=== PATIENT | male | born 1985 | race African-American/Black ===

== ENCOUNTER 2024-12-05 10:00 | Emergency (ER) | payer MEDICAID, OTHER ==
[~2024-12-05] VITALS: Ht 185.4 cm; Wt 113.0 kg
[2024-12-05 10:04] VITALS: O2SAT 99
[2024-12-05 10:15] VITALS: TEMP 36.5; O2SAT 98
[2024-12-05 10:46] VITALS: BP 136/89; PULSE 84; RESP 14
[2024-12-05] MEDS: IBUPROFEN 600MG TABLET PO ONE (10:46)
[2024-12-05] MEDS ORDERED: METH-653 MT (10:48)
== END 2024-12-05 11:05 | disposition home or self-care (01) ==
LOC: ER 10:00
DX: M54.9 Dorsalgia, unspecified (principal); Z90.49 Acquired absence of other specified parts of digestive tract; V43.52XA Car driver injured in collision with other type car in traffic accident, initial encounter; Y93.89 Activity, other specified; Y92.410 Unspecified street and highway as the place of occurrence of the external cause; Y99.8 Other external cause status
CPT/HCPCS: 99283

== ENCOUNTER 2025-01-29 14:54 | Emergency (ER) | payer MEDICAID ==
[~2025-01-29] VITALS: Ht 182.9 cm; Wt 114.0 kg
[~2025-01-29 14:54] MED LIST: METH-653 MT
[2025-01-29 14:55] VITALS: PULSE 113; RESP 16; O2SAT 99
[2025-01-29 15:01] VITALS: BP 137/85; TEMP 36.7; O2SAT 97
[2025-01-29] MEDS ORDERED: PROP1DRO2 MT (15:50)
[2025-01-29] MEDS ORDERED: LORA-985 MT (15:50)
[2025-01-29] MEDS: FLUORESCEIN SODIUM 1MG/STRIP RIGHTEYE ONE (15:58)
[2025-01-29] MEDS: TETRACAINE 0.5% OPHTH DROPS 4ML RIGHTEYE ONE (15:58)
== END 2025-01-29 16:00 | disposition home or self-care (01) ==
LOC: ER 14:54
DX: H57.11 Ocular pain, right eye (principal); Z90.49 Acquired absence of other specified parts of digestive tract; Z79.899 Other long term (current) drug therapy
CPT/HCPCS: 99283

== ENCOUNTER 2025-06-29 14:39 | Emergency (ER) | payer MEDICAID ==
[~2025-06-29] VITALS: Ht 185.4 cm; Wt 105.0 kg
[~2025-06-29 14:39] MED LIST changes: +LORA-985 MT; +PROP1DRO2 MT
[2025-06-29 14:43] VITALS: BP 142/89; PULSE 72; RESP 18; TEMP 37; O2SAT 100
== END 2025-06-29 15:18 | disposition left against medical advice (07) ==
LOC: ER 14:39
DX: M79.89 Other specified soft tissue disorders (principal); Z98.890 Other specified postprocedural states; Z90.49 Acquired absence of other specified parts of digestive tract; Z53.21 Procedure and treatment not carried out due to patient leaving prior to being seen by health care provider